=== PATIENT | male | born 1990 | race Caucasian/White ===

== ENCOUNTER 2019-01-04 15:20 | Emergency (ER) | payer BC ==
[~2019-01-04] VITALS: Ht 188 cm; Wt 121.6 kg
[2019-01-04] MEDS ORDERED: Naprosyn500 MG PO (16:29)
== END 2019-01-04 16:36 | disposition home or self-care (01) ==
LOC: ER 15:20
DX: M10.9 Gout, unspecified (principal); F17.200 Nicotine dependence, unspecified, uncomplicated
CPT/HCPCS: 73630; 99283-25